=== PATIENT | female | born 1995 | race Caucasian/White ===

== ENCOUNTER → 2024-06-06 08:50 | Outpatient (REF) | payer BC, SELFPAY ==
[2024-06-06 09:53] LABS: % Basophils 0.5 % (0-2); % Eosinophils 1.2 % (0-6); % Immature Granulocytes 0.2 % (0-0.5); % Lymphocytes 42.4 % (20.5-51.1); % Monocytes 8.2 % (1.7-9.3); % Neutrophils 47.5 % (42.2-75.2); Absolute Eosinophils 0.1 10^3/uL (0-0.7); Absolute Lymphocytes 1.8 10^3/uL (1.2-3.4); Absolute Monocytes 0.3 10^3/uL (0.1-0.6); Hematocrit 39.4 % (37.0-47.0); Hemoglobin 13.3 g/dL (12.0-16.0); Mean Corp Hgb Conc. 33.8 g/dL (33.0-37.0); Mean Corpuscular Hgb 31.7 pg (27.0-31.0); Mean Platelet Volume 9.9 fL (7.4-10.4); Nucleated Red Blood Cells % 0 %; Platelet Count 203 10^3/uL (130-400); Red Blood Cell Count 4.19 10^6/uL (4.20-5.40); White Blood Cell Count 4.1 10^3/uL (4.8-10.8)
[2024-06-06 10:32] LABS: ALT (SGPT) 13 U/L (0-35); AST (SGOT) 21 U/L (14-36); Albumin 4.1 g/dl (3.5-5.0); Alkaline Phosphatase 58 U/L (38-126); Blood Urea Nitrogen 12 mg/dl (7-17); Calcium 9.2 mg/dl (8.4-10.2); Carbon Dioxide 27 mmol/L (22-30); Chloride 105 mmol/L (98-107); Glucose 88 mg/dl (70-99); HDL Cholesterol 50 mg/dl; Potassium 4.6 mmol/L (3.5-5.1); Sodium 138 mmol/L (135-145); Total Bilirubin 0.7 mg/dl (0.2-1.3); Total Cholesterol 142 mg/dl (50-199); Total Protein 6.6 g/dl (6.3-8.2); eGFR > 60.00
[2024-06-06 11:02] LABS: TSH 1.23 uIU/ml (0.47-4.68)
[2024-06-06 11:07] LABS: LDL Cholesterol, Calculated 86 mg/dl; Triglyceride 30 mg/dl (10-149); Very Low Density Lipoprotein 6 mg/dl (0-30)
== END ==
LOC: REG 08:50
PROVIDERS: ATTENDING PHYSICIAN Physician Assistant Medical
DX: Z00.00 Encounter for general adult medical examination without abnormal findings (principal)
CPT/HCPCS: 36415; 80053; 80061; 84443; 85025

== ENCOUNTER → 2024-12-03 14:24 | Outpatient (REF) | payer BC, SELFPAY | LOC: WDC 14:24 | PROVIDERS: ATTENDING PHYSICIAN Nurse Practitioner Family; FAMILY PHYSICIAN Physician Assistant Medical | DX: N63.10 Unspecified lump in the right breast, unspecified quadrant (principal) | CPT/HCPCS: 76642 ==

== ENCOUNTER → 2024-12-11 13:41 | Outpatient (REF) | payer BC, SELFPAY | LOC: CPAP 13:41 | PROVIDERS: ATTENDING PHYSICIAN Student in an Organized Health Care Education/Training Program | DX: Z01.419 Encounter for gynecological examination (general) (routine) without abnormal findings (principal) | CPT/HCPCS: 87624 ==

== ENCOUNTER 2025-02-16 14:14 | Emergency (ER) | payer BC, SELFPAY ==
[2025-02-16 14:16] VITALS: BP 118/80
--- NOTE | 2025-02-16 15:13 | ED.GENMED ---
History of Present Illness
General
Chief Complaint: Head Injury
Source: patient
Exam Limitations: none
Time Seen by Provider: 02/16/25 14:48
Nursing documentation reviewed up to this point in time: agreed with
History of Present Illness
History of Present Illness:
This is a 29-year-old female with no past medical history who presents to the emergency department today with concerns of headache following a head injury that occurred yesterday. Patient reports that yesterday, she is outside and hanging out with
her while he was chopping wood when he went to go split the piece of wood with an ax and a piece of wood hit her in the left side of her head, causing her to fall back and have a brief episode of loss of consciousness. Patient reports that
her said that he was calling out to her and she was not responding. Patient states that she was lying on the grass at the time and her carried her inside. Patient states that at the time the left side of her face was swollen and
she had some dizziness along with some transient blurry vision. Patient denies any nausea or vomiting. Patient states that since then she has had a persistent headache and has felt fatigued. 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
noticed that she got a worsening headache with this. She denies any neck pain. She denies any other injuries. She denies any back pain. She denies any chest pain or shortness of breath. Patient denies any eye pain.
Past History
Past History
ED Past Medical History: None
ED Past Surgical History: None
Social History
Tobacco: Non-smoker
Alcohol: Occasional
Drug: None
Personal: Single
Living: with roommate
Employment: Employed
Family History
Family History: Other (Noncontributory)
Review of Systems
Review of Systems
All Other Systems: ROS reviewed and negative except as documented in HPI and ROS
Phy Exam
Physical Exam
Physical Exam:
General: Patient is well appearing and in no acute distress; non-toxic
Skin: Small abrasion noted to left temporal area
Head: No palpable hematoma, no tenderness palpation of the facial bones
Eyes: Sclera non-icteric. EOMs intact.
Cardiac: Regular rate and rhythm, no murmurs
Peripheral Vascular: No lower extremity swelling or edema
Pulm: Normal respiratory effort, no wheezes, rales, rhonchi
Musculoskeletal: 5 out of 5 strength in bilateral upper and lower extremities
Neuro: CN II-XII intact, no focal neurologic deficits. Normal [id number], heel palma testing.
Psychiatric: Appropriate mood and affect.
Course
Orders/Labs/Results
Orders:
Orders
02/16/25 15:23
CT Head W/o Iv Contrast Urgent
Comment:
Reason For Exam: LOC following head strike
02/16/25 16:46
Acetaminophen [Tylenol] 650 mg .ROUTE .STK-MED ONE
02/16/25 16:48
Acetaminophen [Tylenol] 650 mg PO NOW STA
Vital Signs
Initial and Last Documented VS:
Initial Vital Signs
Temp Pulse Resp BP Pulse Ox
98.2 F 87 16 118/80 98
02/16/25 14:16 02/16/25 14:16 02/16/25 14:16 02/16/25 14:16 02/16/25 14:16
Last Documented Vital Signs
Temp Pulse Resp BP Pulse Ox
98.2 F 73 16 103/71 100
02/16/25 14:16 02/16/25 17:32 02/16/25 17:32 02/16/25 17:32 02/16/25 17:32
MDM/Problems Addressed
Differential Diagnosis Includes:
ddx include concussion, tension headache, migraine headache, epidural hematoma, subdural
MDM/Problems Addressed:
29-year-old female presents emergency department with headaches and fatigue following a blunt head injury that occurred yesterday. Symptoms, history and physical exam consistent with concussion. However, in light of loss of consciousness during
event, did obtain CAT scan of the head which was negative for any acute intracranial abnormality. Discussed return to work precautions, discussed brain rest, discussed follow-up with primary care provider and discussed return precautions. Patient
stable for discharge.
*Pulse Oximetry
Patient hypoxic: no
*Critical Care Note
Total Time (30-74mins, 75-104mins- exclusive of procedures): Not Applicable
Data Reviewed
Review of Other/Old Records Reveals: Records (Reviewed ER physician documentation from 07/11/2023 patient seen for vomiting and diarrhea, no discharge summaries to review)
Source: patient and records
ED Attending Note
-
Portions of this chart may have been created with voice recognition software.� Occasional wrong word or��sound alike� substitutions may have occurred due to the inherent limitations of voice recognition software.
Discharge Plan
Departure
Patient Disposition: Home (Routine Discharge)
Date of Disposition: 02/16/25
Time of Disposition: 17:09
Patient with high blood pressure during this ER visit?: No
Condition: Good
Discharge Problem:
Concussion
Instructions: Concussion, Adult (DC), Head Injury in Adults (DC)
Prescriptions:
No Action
norgestimate-ethinyl estradiol [Sprintec (28)] 1 TAB tablet
1 tab PO DAILY
phenazopyridine 100 MG tablet
100 mg PO Q8 Qty: 9 0RF
ondansetron 4 MG tablet,disintegrating
4 mg PO TIDPRN PRN (Reason: nausea/vomiting) Qty: 9 0RF
hydromorphone [Dilaudid] 2 mg tablet
2 mg PO Q6H PRN (Reason: pain) Qty: 10 0RF
ondansetron 4 mg tablet,disintegrating
4 mg PO TID PRN (Reason: nausea and vomiting) Qty: 10 0RF
Referrals:
Lina Valdes PA [Family Provider] -
Stand Alone Forms: Return to Work
Activity Restrictions/Additional Instructions:
Your CT scan of the head was normal.
Please continue to monitor your symptoms and follow-up with your primary care provider in 2 weeks should your symptoms persist or worsen.
PLEASE RETURN EMERGENCY DEPARTMENT SHOULD YOU DEVELOP VISUAL LOSS, FAINTING SPELLS, BLURRY VISION, INTRACTABLE HEADACHE, INTRACTABLE NAUSEA OR VOMITING, CHEST PAIN, SHORTNESS OF BREATH, OR ANY OTHER SIGNS OR SYMPTOMS WORRISOME TO YOU.
Interventions
Interventions:
*Risk Screen - Suicide Last Done: 02/16/25 14:16
*General Assessment Last Done: 02/16/25 14:20
*Neglect/Abuse Screening Last Done: 02/16/25 14:20
*ED- Fall Risk Assessment Last Done: 02/16/25 15:14
*ED COVID-19 Vaccine History Last Done: 02/16/25 15:14
*Nursing Disposition Last Done: 02/16/25 17:33
ED- Neurological Assessment Last Done: 02/16/25 15:15
ED-Skin Assessment Last Done: 02/16/25 15:15
Discharge Date and Time
Discharge Date/Time: 02/16/25 17:33
Print Language: NIGERIAN
[2025-02-16 15:15] VITALS: BMI 22.9
[2025-02-16] MEDS: TYLENOL 650 MG PO (16:49)
[2025-02-16 17:32] VITALS: BP 103/71
== END 2025-02-16 17:33 | disposition home or self-care (01) ==
LOC: EMR 14:14
PROVIDERS: EMERGENCY PHYSICIAN Student in an Organized Health Care Education/Training Program; FAMILY PHYSICIAN Physician Assistant Medical
DX: S06.0X1A Concussion with loss of consciousness of 30 minutes or less, initial encounter (principal); W22.8XXA Striking against or struck by other objects, initial encounter
CPT/HCPCS: 99284; 70450

== ENCOUNTER → 2025-06-11 07:10 | Outpatient (REF) | payer BC, SELFPAY ==
[2025-06-11 07:53] LABS: Hematocrit 42.4 % (37.0-47.0); Hemoglobin 14.1 g/dL (12.0-16.0); Mean Corp Hgb Conc. 33.3 g/dL (33.0-37.0); Mean Corpuscular Volume 92.4 fL (81.0-99.0); Nucleated Red Blood Cells % 0 %; Platelet Count 210 10^3/uL (130-400); Red Cell Dist. Width 13.0 % (11.5-14.5)
[2025-06-11 08:26] LABS: ALT (SGPT) 25 U/L (0-35); AST (SGOT) 19 U/L (14-36); Albumin 4.8 g/dl (3.5-5.0); Alkaline Phosphatase 48 U/L (38-126); Blood Urea Nitrogen 15 mg/dl (7-17); Calcium 10.0 mg/dl (8.4-10.2); Carbon Dioxide 25 mmol/L (22-30); Chloride 106 mmol/L (98-107); Glucose 89 mg/dl (70-99); HDL Cholesterol 61 mg/dl; LDL Cholesterol, Calculated 126 mg/dl; Potassium 4.4 mmol/L (3.5-5.1); Sodium 138 mmol/L (135-145); Total Protein 7.7 g/dl (6.3-8.2); Very Low Density Lipoprotein 14 mg/dl (0-30); eGFR > 60.00
== END ==
LOC: REG 07:10
PROVIDERS: ATTENDING PHYSICIAN Nurse Practitioner Family
DX: Z00.00 Encounter for general adult medical examination without abnormal findings (principal)
CPT/HCPCS: 36415; 80053; 80061; 84443; 85025

== ENCOUNTER → 2025-06-29 16:39 | Outpatient (REF) | payer BC, SELFPAY | LOC: RAD 16:39 | PROVIDERS: ATTENDING PHYSICIAN Obstetrics & Gynecology; FAMILY PHYSICIAN Nurse Practitioner Family | DX: O26.851 Spotting complicating pregnancy, first trimester (principal) | CPT/HCPCS: 36415; 76801; 76817; 84702 ==

== ENCOUNTER → 2025-07-07 16:06 | Outpatient (REF) | payer BC, SELFPAY ==
[2025-07-07 17:46] LABS: Beta HCG Quantitative 79692.00 mIU/ml
== END ==
LOC: REG 16:06
PROVIDERS: ATTENDING PHYSICIAN Obstetrics & Gynecology; FAMILY PHYSICIAN Nurse Practitioner Family
DX: Z32.01 Encounter for pregnancy test, result positive (principal)
CPT/HCPCS: 36415; 84702

== ENCOUNTER → 2025-07-14 17:22 | Outpatient (REF) | payer BC, SELFPAY ==
[2025-07-14 17:58] LABS: Hematocrit 37.1 % (37.0-47.0); Hemoglobin 12.8 g/dL (12.0-16.0); Mean Corp Hgb Conc. 34.5 g/dL (33.0-37.0); Mean Corpuscular Volume 91.6 fL (81.0-99.0); Nucleated Red Blood Cells % 0 %; Platelet Count 201 10^3/uL (130-400); Red Cell Dist. Width 12.0 % (11.5-14.5); Urine Character Clear (Clear)
[2025-07-14 18:08] LABS: Urine Red Blood Cell 0-2 /HPF (0-2); Urine Squamous Cell 16-20 /LPF (Few); Urine White Cell 0-2 /HPF (0-5)
[2025-07-14 18:45] LABS: Beta HCG Quantitative 146760.00 mIU/ml
[2025-07-14 19:00] LABS: Hepatitis B Surface Antigen Negative (Negative)
[2025-07-14 19:18] LABS: Hepatitis C Antibody Negative (Negative)
[2025-07-15 06:57] LABS: Glycohemoglobin (HgbA1c) 5.0 % (4.0-5.6)
[2025-07-17 12:51] LABS: Syphilis/T. pallidum Ab Reflex Negative (Negative)
== END ==
LOC: CPAP 17:22
PROVIDERS: ATTENDING PHYSICIAN Obstetrics & Gynecology; FAMILY PHYSICIAN Nurse Practitioner Family
DX: Z32.01 Encounter for pregnancy test, result positive (principal); Z34.90 Encounter for supervision of normal pregnancy, unspecified, unspecified trimester; Z11.3 Encounter for screening for infections with a predominantly sexual mode of transmission
CPT/HCPCS: 36415; 81003; 81015; 83036; 84702; 85025; 86704; 86706; 86765; 86780; 86803; 86850; 86900; 86901; 87086; 87340; 87389; 87491; 87591

== ENCOUNTER → 2025-07-22 07:53 | Outpatient (REF) | payer BC, SELFPAY | LOC: WDC 07:53 | PROVIDERS: ATTENDING PHYSICIAN Obstetrics & Gynecology; FAMILY PHYSICIAN Nurse Practitioner Family | DX: N63.24 Unspecified lump in the left breast, lower inner quadrant (principal) | CPT/HCPCS: 76642 ==

== ENCOUNTER → 2025-08-25 07:00 | Outpatient (REF) | payer BC, SELFPAY | LOC: PNTC 07:00 | PROVIDERS: ATTENDING PHYSICIAN Student in an Organized Health Care Education/Training Program | DX: Z36.0 Encounter for antenatal screening for chromosomal anomalies (principal) | CPT/HCPCS: 36415; 76801; 76813 ==

== ENCOUNTER → 2025-09-15 06:54 | Outpatient (REF) | payer BC, SELFPAY | LOC: PNTC 06:54 | PROVIDERS: ATTENDING PHYSICIAN Student in an Organized Health Care Education/Training Program | DX: O44.22 Partial placenta previa NOS or without hemorrhage, second trimester (principal); Z36.86 Encounter for antenatal screening for cervical length | CPT/HCPCS: 76805; 76817 ==

== ENCOUNTER → 2025-10-01 17:13 | Outpatient (REF) | payer BC, SELFPAY | LOC: REG 17:13 | PROVIDERS: ATTENDING PHYSICIAN Obstetrics & Gynecology; FAMILY PHYSICIAN Nurse Practitioner Family | DX: Z34.92 Encounter for supervision of normal pregnancy, unspecified, second trimester (principal) | CPT/HCPCS: 36415; 82105 ==

== ENCOUNTER → 2025-10-02 13:11 | Outpatient (REF) | payer BC, SELFPAY | LOC: CLAB 13:11 | PROVIDERS: ATTENDING PHYSICIAN Student in an Organized Health Care Education/Training Program | DX: R39.9 Unspecified symptoms and signs involving the genitourinary system (principal) | CPT/HCPCS: 87086 ==

== ENCOUNTER → 2025-10-06 08:47 | Outpatient (REF) | payer BC, SELFPAY | LOC: PNTC 08:47 | PROVIDERS: ATTENDING PHYSICIAN Obstetrics & Gynecology | DX: O36.8320 Maternal care for abnormalities of the fetal heart rate or rhythm, second trimester, not applicable or unspecified (principal) | CPT/HCPCS: 59025; 76815 ==

== ENCOUNTER → 2025-10-13 14:50 | Outpatient (REF) | payer BC, SELFPAY | LOC: PNTC 14:50 | PROVIDERS: ATTENDING PHYSICIAN Student in an Organized Health Care Education/Training Program | DX: O26.852 Spotting complicating pregnancy, second trimester (principal) | CPT/HCPCS: 76811; 76817 ==

== ENCOUNTER → 2025-11-12 08:02 | Outpatient (REF) | payer BC, SELFPAY | LOC: PNTC 08:02 | PROVIDERS: ATTENDING PHYSICIAN Student in an Organized Health Care Education/Training Program | DX: O36.8390 Maternal care for abnormalities of the fetal heart rate or rhythm, unspecified trimester, not applicable or unspecified (principal) | CPT/HCPCS: 76816 ==

== ENCOUNTER → 2025-11-20 08:03 | Outpatient (REF) | payer BC, SELFPAY ==
[2025-11-20 10:02] LABS: Hematocrit 34.0 % (37.0-47.0); Hemoglobin 11.4 g/dL (12.0-16.0); Mean Corp Hgb Conc. 33.5 g/dL (33.0-37.0); Mean Corpuscular Volume 94.2 fL (81.0-99.0); Nucleated Red Blood Cells % 0 %; Platelet Count 209 10^3/uL (130-400); Red Cell Dist. Width 13.4 % (11.5-14.5)
[2025-11-20 10:32] LABS: 1 Hour after 50gm 87 mg/dl
== END ==
LOC: REG 08:03
PROVIDERS: ATTENDING PHYSICIAN Obstetrics & Gynecology; FAMILY PHYSICIAN Nurse Practitioner Family
DX: Z34.93 Encounter for supervision of normal pregnancy, unspecified, third trimester (principal)
CPT/HCPCS: 36415; 82950; 85025; 86780